=== PATIENT | male | born 1995 | race Caucasian/White ===

== ENCOUNTER 2018-03-17 17:50 | Emergency (ER) | payer OTHER ==
--- NOTE | 2018-03-17 18:21 | EDPHY ---
HPI/HX/ROS/PE/MDM Narrative: CHIEF COMPLAINT: Red-colored stool HPI: The patient is a 22 y/o male with a history of a hernia repair complaining of a dark red color in his stool today. He is unsure if this was blood or due to eating beets yesterday. He is also having lower abdominal cramping, onset today. Due to the combination of the cramping and abnormal stool color he decided to present to the emergency department. He denies recent antibiotic use or eating other abnormal foods besides the beets. No fever, headache, chest pain , shortness of breath, abdominal pain, urinary or bowel complaints, numbness, paresthesias REVIEW OF SYSTEMS: Aside from elements discussed in the HPI, a comprehensive 10-point review of systems was reviewed and is negative. PMH: Hernia repair SOCIAL HISTORY: Lives in [place], single, employed PHYSICAL EXAM: General: Patient is alert, in no acute distress. ENT: Eyes are normal to inspection. ENT inspection normal. Neck: Normal inspection. Full range of motion. Respiratory: No respiratory distress. Breath sounds normal bilaterally. Cardiovascular: Regular rate and rhythm. Strong peripheral pulses. Normal cap refill. Abdomen: The abdomen is nontender to palpation. There are no peritoneal signs. There are normal bowel sounds. Back: Normal to inspection. No tenderness to palpation. Skin: Normal color. No rash. Warm and dry. Extremities: Normal appearance. Full range of motion. Neuro: Oriented x3. Normal motor function. Normal sensory function. ED Course: 1930: Patient's occult stool is negative; the red color he saw in his stool was most likely due to the beets he ate last night. 1931: Reassessed patient and discussed negative stool sample findings. Return precautions provided; patient is comfortable with this plan. - Data Points Laboratory Results: 03/17/18 18:36 Stool Occult Bld Scrn NEGATIVE (NEGATIVE) General Time Seen by Provider: 03/17/18 18:17 Initial Vital Signs: Initial Vital Signs Temperature (C) 36.9 C 03/17/18 17:57 Heart Rate 71 03/17/18 17:57 Respiratory Rate 16 03/17/18 17:57 Blood Pressure 119/68 03/17/18 17:57 O2 Sat (%) 98 03/17/18 17:57 O2 Delivery Mode Room Air Allergies/Adverse Reactions: No Known Allergies Allergy (Unverified 03/17/18 17:59) Home Medications: Medication Instructions Recorded NK [No Known Home Meds] 03/17/18 Departure - Departure Disposition: Home, Routine, Self-Care Clinical Impression: Abdominal pain Qualifiers: Abdominal location: generalized Qualified Code(s): R10.84 - Generalized abdominal pain Condition: Good Instructions: Acute Abdominal Pain (ED) Additional Instructions: Follow-up with your primary doctor within 72 hours. Return to the Emergency Department for fever, chest pain, shortness of breath, increasing pain or other worsening of condition. Referrals: [facility],. [Clinic] - As per Instructions Report Scribed for: Ramu Hernandez Report Scribed by: Aylin Woodruff Date of Report: 03/17/18 Time of Report: 18:20 Physician Review and Approval Statement: Portions of this note were transcribed by an ED scribe. I personally performed the history, physical exam, and medical decision making; and confirm the accuracy of the information in the transcribed note.
[2018-03-17 19:41] VITALS: BP 128/78
== END 2018-03-17 19:40 | disposition home or self-care (01) ==
DX: R10.84 Generalized abdominal pain (principal); K92.1 Melena